=== PATIENT | female | born 1980 | race Caucasian/White ===

== ENCOUNTER 2022-06-03 10:39 | Day surgery (SDC) | payer OTHER ==
[2022-06-01 15:29] VITALS: BMI 22.6
[2022-06-03] MEDS ORDERED: Ropivacaine 0.2% 550 ML 550 ML NERVE BLCK SCH (12:30)
[2022-06-03] MEDS ORDERED: Ondansetron PF 4 MG/2 ML Vial IVP PRN (12:30)
[2022-06-03] MEDS ORDERED: Promethazine HCl 25 MG/ML VIAL IM PRN (12:30)
[2022-06-03] MEDS ORDERED: Zolpidem Tartrate 5 MG TAB PO PRN (12:30)
[2022-06-03] MEDS ORDERED: Midazolam HCl 2 mg/2 ml Vial ONE (12:42)
[2022-06-03] MEDS ORDERED: Neomycin-Polymyxin 1 ML AMP ONE (13:23)
[2022-06-03] MEDS ORDERED: Bupivacaine PF 0.5% 30 ML VIAL ONE (13:23)
[2022-06-03] MEDS ORDERED: CEFAZOLIN 2 GM VIAL ONE (13:27)
[2022-06-03] MEDS ORDERED: PROPOFOL 20 ML ONE (13:29)
[2022-06-03] MEDS ORDERED: Fentanyl 100 MCG/2 ML VIAL ONE ×2 (13:29→16:04)
[2022-06-03] MEDS ORDERED: Ondansetron PF 4 MG/2 ML Vial ONE (13:30)
[2022-06-03] MEDS ORDERED: Lidocaine 1% PF 5 ML VIAL ONE (13:30)
[2022-06-03] MEDS ORDERED: Dexamethasone 4 mg/ml Vial ONE (13:30)
[2022-06-03] MEDS ORDERED: Triamcinolone 40 MG/ML VIAL ONE (13:44)
[2022-06-03] MEDS ORDERED: HYDROcodone/Acetaminophen 5/325 mg Tablet ONE (16:34)
== END 2022-06-03 17:00 | disposition home or self-care (01) ==
LOC: CSHSDC 10:39
PROVIDERS: ATTEND Podiatrist Foot & Ankle Surgery
PROC: 0QSN04Z Reposition Right Metatarsal with Internal Fixation Device, Open Approach (ICD-10-PCS; principal; 2022-06-03)
DX: M20.11 Hallux valgus (acquired), right foot (principal); M77.41 Metatarsalgia, right foot; M25.374 Other instability, right foot; M19.072 Primary osteoarthritis, left ankle and foot; F90.9 Attention-deficit hyperactivity disorder, unspecified type; Z79.899 Other long term (current) drug therapy; F41.9 Anxiety disorder, unspecified
CPT/HCPCS: A4306; C1713; C1769; C1776; J1100; J2250; J2405; J2704; J2795; J3010; J3301; S0020